=== PATIENT | female | born 1990 | race American Indian/Alaskan Native ===

== ENCOUNTER 2016-08-17 06:25 | Emergency (ER) | payer MEDICAID ==
[2016-08-17] MEDS ORDERED: DELTASONE ONE (06:36)
[2016-08-17] MEDS ORDERED: DELTASONE PO ONE (06:40)
[2016-08-17 06:49] VITALS: BP 131/87
--- NOTE | 2016-08-17 08:06 | Emergency Department Report ---
ED ENT HPI - General Chief complaint: Sore Throat Stated complaint: THROAT PAIN/SWELLING/ALLERGIC REACTION Time Seen by Provider: 08/17/16 07:24 Source: patient Mode of arrival: Ambulatory Limitations: No Limitations - History of Present Illness Initial comments: Patient comes into the ER today with complaints of waking up this morning with difficulty swallowing and the feeling of her throat swelling. Patient denies any obvious change in environment but does state that she ate a different brand of chips and she usually eats last night. Patient further notes that she has been having some nasal and sinus congestion for the past week. She saw her doctor earlier this week and was given a steroid shot for her asthma. - Related Data Previous Rx's Medication Instructions Recorded Last Taken Type Amoxicillin 1,000 mg PO BID #40 capsule 08/17/16 Unknown Rx predniSONE [Deltasone] 60 mg PO QDAY #15 tab 08/17/16 Unknown Rx Allergies Allergy/AdvReac Type Severity Reaction Status Date / Time No Known Allergies Allergy Verified 08/17/16 06:40 ED Dental HPI - General Chief complaint: Sore Throat Stated complaint: THROAT PAIN/SWELLING/ALLERGIC REACTION Time Seen by Provider: 08/17/16 07:24 Source: patient Mode of arrival: Ambulatory Limitations: No Limitations - Related Data Previous Rx's Medication Instructions Recorded Last Taken Type Amoxicillin 1,000 mg PO BID #40 capsule 08/17/16 Unknown Rx predniSONE [Deltasone] 60 mg PO QDAY #15 tab 08/17/16 Unknown Rx Allergies Allergy/AdvReac Type Severity Reaction Status Date / Time No Known Allergies Allergy Verified 08/17/16 06:40 ED Review of Systems ROS: Stated complaint: THROAT PAIN/SWELLING/ALLERGIC REACTION Other details as noted in HPI Constitutional: denies: chills, fever Eyes: denies: eye pain, eye discharge, vision change ENT: throat pain, congestion. denies: ear pain Respiratory: wheezing. denies: cough, shortness of breath Cardiovascular: denies: chest pain, palpitations Endocrine: no symptoms reported Gastrointestinal: denies: abdominal pain, nausea, diarrhea Genitourinary: denies: urgency, dysuria, discharge Musculoskeletal: denies: back pain, joint swelling, arthralgia Skin: denies: rash, lesions Neurological: denies: headache, weakness, paresthesias Psychiatric: denies: anxiety, depression Hematological/Lymphatic: denies: easy bleeding, easy bruising ED Past Medical Hx - Past Medical History Previous Medical History?: Yes Hx Diabetes: Yes (NIDDM) Hx Asthma: Yes Additional medical history: Obesity - Surgical History Past Surgical History?: Yes Additional Surgical History: C-Sec x 1 - Social History Smoking Status: Never Smoker Substance Use Type: None - Medications Home Medications: Home Medications Medication Instructions Recorded Confirmed Last Taken Type Amoxicillin 1,000 mg PO BID #40 capsule 08/17/16 Unknown Rx predniSONE [Deltasone] 60 mg PO QDAY #15 tab 08/17/16 Unknown Rx ED Physical Exam - General Limitations: No Limitations General appearance: alert, in no apparent distress - Head Head exam: Present: atraumatic, normocephalic - Eye Eye exam: Present: normal appearance, PERRL, EOMI - ENT ENT exam: Present: mucous membranes moist, TM's normal bilaterally, normal external ear exam, other (swollen and blistery appearing looking uvula noted in pharynx. No surrounding soft tissue swelling or redness noted. Bilateral nasal mucosa redness and swelling with swollen nasal turbinates.) - Neck Neck exam: Present: normal inspection - Respiratory Respiratory exam: Present: normal lung sounds bilaterally, wheezes (right upper lobe slight wheezing). Absent: respiratory distress, rales, rhonchi, chest wall tenderness, accessory muscle use, decreased breath sounds - Cardiovascular Cardiovascular Exam: Present: regular rate, normal rhythm. Absent: systolic murmur, diastolic murmur, rubs, gallop - GI/Abdominal GI/Abdominal exam: Present: soft, normal bowel sounds - Extremities Exam Extremities exam: Present: normal inspection - Back Exam Back exam: Present: normal inspection - Neurological Exam Neurological exam: Present: alert, oriented X3, CN II-XII intact - Psychiatric Psychiatric exam: Present: normal affect, normal mood - Skin Skin exam: Present: warm, dry, intact, normal color. Absent: rash ED Course Vital Signs 08/17/16 06:25 Temperature 98.3 F Pulse Rate 84 Respiratory 18 Rate Blood Pressure 131/87 [Right] O2 Sat by Pulse 100 Oximetry ED Medical Decision Making - Lab Data Microbiology 08/17/16 Unknown Group A Streptococcus Rapid Screen - Final Throat - Medical Decision Making Patient was swabbed for strep screen in triage. Results were negative and discussed with patient. I suspect patient's swollen uvula may be secondary to possible allergic reaction. Patient was given prednisone orally here in the ER. Patient is swallowing and in no respiratory distress during examination. Due to sinus infection and congestion, I will also start patient on some antibiotics appropriately. I will refer patient to ENT if symptoms fail to resolve worsen. Patient is stable for discharge in and is agreement with treatment plan. Critical care attestation.: If time is entered above; I have spent that time in minutes in the direct care of this critically ill patient, excluding procedure time. ED Disposition Clinical Impression: Uvulitis, Sinusitis Disposition: DISCHARGED TO HOME OR SELFCARE Is pt being admited?: No Does the pt Need Aspirin: No Condition: Good Instructions: Uvulitis (ED), Sinusitis (ED) Prescriptions: Amoxicillin 1,000 mg PO BID #40 capsule predniSONE [Deltasone] 60 mg PO QDAY #15 tab Referrals: PRIMARY CARE, [Primary Care Provider] - 3-5 Days Forms: Work/School Release Form(ED) Time of Disposition: 08:08
== END 2016-08-17 08:18 | disposition home or self-care (01) ==
LOC: ED 06:25
DX: K12.2 Cellulitis and abscess of mouth (principal); J32.9 Chronic sinusitis, unspecified; E11.9 Type 2 diabetes mellitus without complications; J45.909 Unspecified asthma, uncomplicated; E66.9 Obesity, unspecified
CPT/HCPCS: 81025; 87116; 87430; 99282; J7512

== ENCOUNTER 2021-05-01 10:29 | Emergency (ER) | payer MEDICAID, OTHER ==
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
[2021-05-01] MEDS ORDERED: SODIUM CHLORIDE 0.9% 1000 ML 1,000 ML IV ONE (11:43)
[2021-05-01 14:13] VITALS: BP 130/70
[2021-05-01 15:05] LABS: Basophils % (Auto) 0.2 % (0.0-1.8); Eosinophils % (Auto) 0.1 % (0.0-4.3); Hematocrit 33.1 % (30.3-42.9); Hemoglobin 10.9 gm/dl (10.1-14.3); Lymphocytes # (Auto) 1.3 K/mm3 (1.2-5.4); Lymphocytes % (Auto) 15.3 % (13.4-35.0); Mean Corpuscular HGB Conc 33 % (30-34); Mean Corpuscular Volume 80 fl (79-97); Monocytes # (Auto) 0.3 K/mm3 (0.0-0.8); Monocytes % (Auto) 3.9 % (0.0-7.3); Platelet Count 224 K/mm3 (140-440); Red Blood Count 4.12 M/mm3 (3.65-5.03); Red Cell Distribution Width 14.8 % (13.2-15.2)
[2021-05-01 15:23] LABS: Alanine Aminotransferase 7 units/L (7-56); Albumin 3.3 g/dL (3.9-5); BUN/Creatinine Ratio 8; Blood Urea Nitrogen 6 mg/dL (7-17); Calcium 7.8 mg/dL (8.4-10.2); Hemolysis Index 7
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
--- NOTE | 2021-05-01 23:52 | XRay Report ---
CHEST 1 VIEW 05/01/2021 12:39 PM INDICATION / CLINICAL INFORMATION: cough. COMPARISON: None available. FINDINGS: SUPPORT DEVICES: None. HEART / MEDIASTINUM: No significant abnormality. LUNGS / PLEURA: No significant pulmonary or pleural abnormality. No pneumothorax. ADDITIONAL FINDINGS: No significant additional findings. IMPRESSION: 1. No acute findings. Signer Name: Jeff Calderón MD Signed: 05/01/2021 1:43 PM Workstation Name: [id number]
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
--- NOTE | 2021-05-02 14:03 | Electrocardiograph Report ---
[facility] Test Date: 2021-05-01 Test Time: 11:16:53 Pat Name: ELLIS MCDONNELL Department: Room: Gender: F [employer] Operator: [email or web address] : 1990 Requested By: KATHI JUSTICE Order Number: [id number] Reading MD: Brigette Fournier Measurements Intervals [place] Rate: 128 P: 59 CO: 126 QRS: 22 QRSD: 85 T: 14 QT: 314 QTc: 459 Interpretive Statements Sinus tachycardia Low voltage, precordial leads No previous ECG available for comparison Electronically Signed On 05-02-2021 14:02:56 EST by Brigette Fournier
== END 2021-05-01 18:41 ==
LOC: ED 10:29
DX: O9A.212 Injury, poisoning and certain other consequences of external causes complicating pregnancy, second trimester (principal); S09.90XA Unspecified injury of head, initial encounter; E11.9 Type 2 diabetes mellitus without complications; J45.909 Unspecified asthma, uncomplicated; Z98.890 Other specified postprocedural states; Z3A.17 17 weeks gestation of pregnancy; Y08.89XA Assault by other specified means, initial encounter; Y93.E1 Activity, personal bathing and showering; Y92.89 Other specified places as the place of occurrence of the external cause; Y99.8 Other external cause status
CPT/HCPCS: 36415; 70450; 71045; 76805; 80053; 84702; 85025; 93005; 93010; 99285